=== PATIENT | female | born 1965 | race Caucasian/White ===

== ENCOUNTER 2018-05-10 07:15 | Day surgery (SDC) | payer OTHER ==
[~2018-05-10] VITALS: Ht 172.7 cm; Wt 63.0 kg
[2018-05-10] MEDS ORDERED: LIDOCAINE 2% 100 MG/5 ML UJET TP ONE (08:58)
[2018-05-10] MEDS ORDERED: fentaNYL 0.05 MG/ML VIAL ONE (08:58)
[2018-05-10] MEDS ORDERED: MIDAZOLAM 2 MG/2 ML VIAL ONE (08:58)
[2018-05-10] MEDS ORDERED: MIDAZOLAM 2 MG/2 ML VIAL IVP ONE (12:10)
[2018-05-10] MEDS ORDERED: fentaNYL 0.05 MG/ML VIAL IVP ONE (12:10)
== END 2018-05-10 11:38 | disposition home or self-care (01) ==
LOC: MDS 07:15 → MMU 07:16 → MDS 11:38
PROVIDERS: ATTEND Internal Medicine Gastroenterology
DX: Z12.11 Encounter for screening for malignant neoplasm of colon (principal); D12.5 Benign neoplasm of sigmoid colon; D12.3 Benign neoplasm of transverse colon; K63.5 Polyp of colon; K22.2 Esophageal obstruction; K29.70 Gastritis, unspecified, without bleeding; K57.30 Diverticulosis of large intestine without perforation or abscess without bleeding; Z86.010 Personal history of colon polyps; Z90.710 Acquired absence of both cervix and uterus; Z98.890 Other specified postprocedural states; Z79.899 Other long term (current) drug therapy
CPT/HCPCS: 36415; 43239; 45380; 45381; 45385; 86677; J2250; J3010